=== PATIENT | male | born 1950 | race Caucasian/White ===

== ENCOUNTER 2019-05-11 16:01 | Inpatient (IN) | payer MEDICARE ==
[~2019-05-11] VITALS: Ht 177.8 cm; Wt 117.8 kg
[2019-05-11 17:26] VITALS: BP 119/74
[2019-05-11] MEDS ORDERED: AMIO200T42 PO (17:26)
[2019-05-11] MEDS ORDERED: OMEG1CAP26 PO (17:26)
[2019-05-11] MEDS ORDERED: ROSU40TA PO (17:26)
[2019-05-11] MEDS ORDERED: MULT-658 PO (17:26)
[2019-05-11] MEDS ORDERED: CARV12.52 PO (17:26)
[2019-05-11] MEDS ORDERED: WARF2.5T32 PO (17:26)
[2019-05-11] MEDS ORDERED: FURO20TA3 PO (17:26)
[2019-05-11] MEDS ORDERED: LISI-167 PO (17:26)
[2019-05-11 17:29] LABS: INTERNATIONAL NORMALIZED RATIO 1.93 (0.93-1.1); PROTHROMBIN TIME 19.8 Seconds (9.6-11.5)
[2019-05-11] MEDS: SODIUM CHLORIDE 0.9% 1,000 ML IV SCH (18:00)
[2019-05-11] MEDS ORDERED: MIDAZOLAM 1 MG/ML, 5ML ONE (18:03)
[2019-05-11] MEDS ORDERED: FENTANYL PF 100 MCG/2ML ONE ×2 (18:03→18:22)
[2019-05-11] MEDS ORDERED: VANCOMYCIN PMX 1GM/200ML 200 ML ONE (18:04)
[2019-05-11] MEDS ORDERED: LIDOCAINE 1%, 20ML ONE (18:04)
[2019-05-11] MEDS ORDERED: VANCOMYCIN 500 MG ONE (18:04)
[2019-05-11] MEDS ORDERED: HYDROcodone/APAP 5/325 TABLET PO PRN (19:30)
[2019-05-11] MEDS ORDERED: ONDANSETRON 2MG/ML, 2ML IV PRN (19:30)
[2019-05-11] MEDS ORDERED: VANCOMYCIN PMX 1GM/200ML 200 ML IVPB SCH (19:30)
[2019-05-11] MEDS ORDERED: ZOLPIDEM 5MG TABLET PO PRN (19:30)
[2019-05-11] MEDS ORDERED: HOLD MEDICATION MC PRN (19:30)
[2019-05-11] MEDS ORDERED: ACETAMINOPHEN 325 MG TABLET PO PRN (19:30)
[2019-05-11 20:10] VITALS: BP 121/69
[2019-05-11] MEDS: CARVEDILOL 12.5 MG TABLET PO SCH (20:37)
[2019-05-11] MEDS: OMEGA-3/FISH OIL CAPSULE PO SCH (20:37)
[2019-05-11] MEDS: SODIUM CHLORIDE FLUSH 10ML SYR IVF SCH (20:38)
[2019-05-11] MEDS ORDERED: ATORVASTATIN 80 MG TABLET PO SCH (21:00)
[2019-05-12 01:00] VITALS: BP 133/86
[2019-05-12] MEDS: SODIUM CHLORIDE 0.9% 1,000 ML IV SCH ×2 (04:00→12:00)
[2019-05-12] MEDS ORDERED: VANCOMYCIN PMX 1GM/200ML 200 ML IVPB ONE (06:00)
[2019-05-12 08:32] VITALS: BP 142/77
[2019-05-12] MEDS: OMEGA-3/FISH OIL CAPSULE PO SCH (09:00)
[2019-05-12] MEDS ORDERED: FUROSEMIDE 20 MG TABLET PO SCH (09:00)
[2019-05-12] MEDS: CARVEDILOL 12.5 MG TABLET PO SCH (09:00)
[2019-05-12] MEDS: SODIUM CHLORIDE FLUSH 10ML SYR IVF SCH (09:00)
[2019-05-12] MEDS ORDERED: AMIODARONE 200 MG TABLET PO SCH (09:00)
[2019-05-12] MEDS ORDERED: LISINOPRIL 10 MG TABLET PO SCH (09:00)
[2019-05-12] MEDS ORDERED: MULTIVITAMIN 1 TABLET PO SCH (09:00)
== END 2019-05-12 12:50 | disposition home or self-care (01) | DRG 245 ==
LOC: 5SO 16:29 → DCLOUNGE 05-12 12:45
PROVIDERS: ADMIT Internal Medicine Cardiovascular Disease; ATTEND Internal Medicine Cardiovascular Disease
PROC: 0JPT0PZ Removal of Cardiac Rhythm Related Device from Trunk Subcutaneous Tissue and Fascia, Open Approach (ICD-10-PCS; principal; 2019-05-11)
PROC: 0JH608Z Insertion of Defibrillator Generator into Chest Subcutaneous Tissue and Fascia, Open Approach (ICD-10-PCS; 2019-05-11)
DX: Z45.010 Encounter for checking and testing of cardiac pacemaker pulse generator [battery] (principal); I25.5 Ischemic cardiomyopathy; Z88.0 Allergy status to penicillin
CPT/HCPCS: 33262; 36415; 71045; 85610; 93005; 99156; 99157; G0378; J2250; J3010; J3370; C1722; J7030

== ENCOUNTER → 2020-05-13 | Outpatient (CLI) | payer MEDICARE ==
[~2020-05-13] MED LIST: AMIO200T42 PO; CARV12.52 PO; FURO20TA3 PO; LISI-167 PO; MULT-658 PO; OMEG1CAP26 PO; ROSU40TA PO; WARF2.5T32 PO
== END | disposition home or self-care (01) ==
LOC: CVU 06:17
PROVIDERS: ATTEND Physician Assistant Medical
DX: I25.10 Atherosclerotic heart disease of native coronary artery without angina pectoris (principal); I11.9 Hypertensive heart disease without heart failure; Z95.810 Presence of automatic (implantable) cardiac defibrillator; Z79.01 Long term (current) use of anticoagulants
CPT/HCPCS: 93306

== ENCOUNTER 2021-01-18 08:55 | Emergency (ER) | payer MEDICARE ==
[~2021-01-18] VITALS: Ht 175.3 cm; Wt 121.5 kg
--- NOTE | 2021-01-18 09:35 | NUR ---
PT TO ROOM 12 W/ C/O NECK PAIN AFTER PT WAS MOWING LAWN AND PT TRIPPED AND FELL. PT STATES HIS HAPPENED LAST WEDNESDAY. PT STATES UNKNOWN IF HE HAD +LOC. PT STATES HE IS ON WAFARIN. PT STATES HIT THE RIGHT SIDE OF FACE. NADN. NECK BRACE APPLIED. NEURO INTACT. PT RESTING ON GURNEY. NADN. MONITORS APPLIED. ERP DR. SARAH AT BEDSIDE FOR CORKY.
[2021-01-18] MEDS ORDERED: METHOCARBAMOL 750 MG TABLET ONE (09:46)
[2021-01-18] MEDS ORDERED: METHOCARBAMOL 750 MG TABLET PO ONE (10:00)
[2021-01-18 10:25] LABS: INTERNATIONAL NORMALIZED RATIO 3.29 (0.93-1.1); PROTHROMBIN TIME 34.4 Seconds (9.6-11.5)
[2021-01-18 10:45] VITALS: BP 121/57
--- NOTE | 2021-01-18 10:45 | NUR ---
PT RESTING ON GURNEY. NADN. SHAFER.
== END 2021-01-18 11:31 | disposition home or self-care (01) ==
LOC: ED 09:21
DX: S16.1XXA Strain of muscle, fascia and tendon at neck level, initial encounter (principal); S09.90XA Unspecified injury of head, initial encounter; I48.91 Unspecified atrial fibrillation; Z79.01 Long term (current) use of anticoagulants; W01.0XXA Fall on same level from slipping, tripping and stumbling without subsequent striking against object, initial encounter; Y93.89 Activity, other specified; Y92.89 Other specified places as the place of occurrence of the external cause; Y99.8 Other external cause status
CPT/HCPCS: 36415; 70450; 72125; 85610; 99285

== ENCOUNTER 2021-06-05 14:51 | Outpatient (CLI) | payer MEDICARE | END 2021-06-05 23:59 | disposition home or self-care (01) | LOC: CVU 14:51 | PROVIDERS: ATTEND Internal Medicine Cardiovascular Disease | DX: I08.8 Other rheumatic multiple valve diseases (principal); I25.5 Ischemic cardiomyopathy | CPT/HCPCS: C8929; Q9957 ==